=== PATIENT | female | born 1960 | race African-American/Black ===

== ENCOUNTER 2020-03-15 15:30 | Outpatient (CLI) | payer OTHER ==
--- NOTE | 2020-03-15 15:46 | RAD ---
EXAM: Left knee: 2 views INDICATIONS: Knee pain. Disability examination COMPARISON: None. FINDINGS: Severe degenerative change. Loss of medial joint space. Severe marginal osteophytes. Degene rative changes patellofemoral joint. No acute osseous abnormality. IMPRESSION: Severe degenerative change
== END 2020-03-15 15:31 | disposition home or self-care (01) ==
LOC: BICRAD 15:30
PROVIDERS: ATTEND Internal Medicine
DX: Z02.71 Encounter for disability determination (principal); M17.12 Unilateral primary osteoarthritis, left knee